=== PATIENT | male | born 1965 | race Caucasian/White ===

== ENCOUNTER 2017-06-07 18:47 | Emergency (ER) | payer MEDICAID ==
[~2017-06-07] VITALS: Ht 157.5 cm; Wt 69.1 kg
[2017-06-07 20:05] VITALS: BP 126/81
== END 2017-06-07 20:07 | disposition home or self-care (01) ==
LOC: ED 18:47
DX: K62.5 Hemorrhage of anus and rectum (principal)

== ENCOUNTER 2017-07-23 17:47 | Emergency (ER) | payer MEDICAID ==
[~2017-07-23] VITALS: Ht 154.9 cm; Wt 67.6 kg
[2017-07-23 18:11] VITALS: Ht 154.9 cm; Wt 67.6 kg
[2017-07-23 20:26] VITALS: BP 90/71
== END 2017-07-23 20:26 | disposition home or self-care (01) ==
LOC: ED 17:47
DX: J06.9 Acute upper respiratory infection, unspecified (principal)
CPT/HCPCS: 87804